=== PATIENT | female | born 1955 | race American Indian/Alaskan Native ===

== ENCOUNTER 2017-06-20 17:15 | Emergency (ER) | payer MEDICARE ==
[2017-06-20] MEDS ORDERED: NACL 0.9% 500 ML IR ONE (19:14)
[2017-06-20] MEDS ORDERED: NACL 0.9% IR ONE (19:16)
[2017-06-20] MEDS ORDERED: XYLOCAINE 1%/ EPI 1:100,000 INFILTRATI ONE (19:35)
[2017-06-20] MEDS ORDERED: XYLOCAINE 1% MPF 5 mL ONE (19:49)
[2017-06-20] MEDS ORDERED: XYLOCAINE 1% MPF 5 mL INFILTRATI ONE (20:19)
--- NOTE | 2017-06-20 20:24 | Emergency Department Report ---
- General Chief Complaint: Wound/Laceration Stated Complaint: FINGER LAC/L HAND Time Seen by Provider: 06/20/17 19:30 Source: patient Mode of arrival: Ambulatory Limitations: No Limitations - History of Present Illness Initial Comments: Patient comes into the ER today with complaints of a laceration to her left second finger. The patient states that she accidentally cut herself with a knife when trying to use the knife as a screwdriver for something else approximately 3 hours prior to my evaluation. Patient states that her last tetanus was 2 years ago. Patient applied pressure immediately and came directly to the ER. Patient denies any other complaints. -: Sudden - Related Data Home Medications Medication Instructions Recorded Confirmed Last Taken Famotidine [Pepcid] 20 mg PO BID 05/30/14 05/30/14 05/28/14 Quetiapine Fumarate [SEROquel] 25 mg PO QHS PRN 05/30/14 05/30/14 03/31/14 Simvastatin 20 mg PO QHS 05/30/14 05/30/14 05/28/14 lamoTRIgine [LaMICtal] 25 mg PO QDAY 05/30/14 05/30/14 05/28/14 Previous Rx's Medication Instructions Recorded Last Taken Type Ciprofloxacin [Ciprofloxacin ORAL 500 mg PO Q12H #10 ml 06/06/14 Unknown Rx LIQ] metroNIDAZOLE [Flagyl] 500 mg PO Q8HR #15 tablet 06/06/14 Unknown Rx oxyCODONE /ACETAMINOPHEN [Percocet 1 tab PO Q4H PRN #60 tablet 06/06/14 Unknown Rx 5/325 mg] Butalb/Acetamin/Caff 50-325-40 2 each PO Q6HR PRN #30 tablet 12/17/14 Unknown Rx [Fioricet] Ibuprofen [Motrin 600 MG tab] 600 mg PO Q8H PRN #20 tablet 12/17/14 Unknown Rx Fluconazole [Diflucan TAB] 150 mg PO ONCE #01 tablet 05/31/16 Unknown Rx Ibuprofen [Motrin] 800 mg PO Q8HR PRN #50 tablet 05/31/16 Unknown Rx Sulfamethoxazole/Trimethoprim 1 each PO BID #20 tablet 05/31/16 Unknown Rx [Bactrim DS TAB] Cephalexin [Keflex] 500 mg PO TID #30 capsule 06/20/17 Unknown Rx Allergies Allergy/AdvReac Type Severity Reaction Status Date / Time No Known Allergies Allergy Unverified 06/20/17 17:43 ED Review of Systems ROS: Stated complaint: FINGER LAC/L HAND Other details as noted in HPI Constitutional: denies: chills, fever Eyes: denies: eye pain, eye discharge, vision change ENT: denies: ear pain, throat pain Respiratory: denies: cough, shortness of breath, wheezing Cardiovascular: denies: chest pain, palpitations Endocrine: no symptoms reported Gastrointestinal: denies: abdominal pain, nausea, diarrhea Genitourinary: denies: urgency, dysuria, discharge Musculoskeletal: denies: back pain, joint swelling, arthralgia Skin: denies: rash, lesions Neurological: denies: headache, weakness, numbness, paresthesias Psychiatric: denies: anxiety, depression Hematological/Lymphatic: denies: easy bleeding, easy bruising ED Past Medical Hx - Past Medical History Previous Medical History?: Yes Hx Hypertension: Yes (well controlled with meds; high cholesterol) Hx Deep Vein Thrombosis: No Hx GERD: Yes Hx Liver Disease: No Hx Renal Disease: No Hx Psychiatric Treatment: Yes (bipolar) Hx Asthma: No Additional medical history: High cholesterol. Spinal Stenosis. Degenerative disc disease - Surgical History Past Surgical History?: Yes Hx Pacemaker: No Hx Internal Defibrillator: No Hx Cholecystectomy: Yes Additional Surgical History: ectopic. Hysterectomy - Social History Smoking Status: Current Every Day Smoker Substance Use Type: None - Medications Home Medications: Home Medications Medication Instructions Recorded Confirmed Last Taken Type Famotidine [Pepcid] 20 mg PO BID 05/30/14 05/30/14 05/28/14 History Quetiapine Fumarate [SEROquel] 25 mg PO QHS PRN 05/30/14 05/30/14 03/31/14 History Simvastatin 20 mg PO QHS 05/30/14 05/30/14 05/28/14 History lamoTRIgine [LaMICtal] 25 mg PO QDAY 05/30/14 05/30/14 05/28/14 History Ciprofloxacin [Ciprofloxacin ORAL 500 mg PO Q12H #10 ml 06/06/14 Unknown Rx LIQ] metroNIDAZOLE [Flagyl] 500 mg PO Q8HR #15 tablet 06/06/14 Unknown Rx oxyCODONE /ACETAMINOPHEN [Percocet 1 tab PO Q4H PRN #60 tablet 06/06/14 Unknown Rx 5/325 mg] Butalb/Acetamin/Caff 50-325-40 2 each PO Q6HR PRN #30 tablet 12/17/14 Unknown Rx [Fioricet] Ibuprofen [Motrin 600 MG tab] 600 mg PO Q8H PRN #20 tablet 12/17/14 Unknown Rx Fluconazole [Diflucan TAB] 150 mg PO ONCE #01 tablet 05/31/16 Unknown Rx Ibuprofen [Motrin] 800 mg PO Q8HR PRN #50 tablet 05/31/16 Unknown Rx Sulfamethoxazole/Trimethoprim 1 each PO BID #20 tablet 05/31/16 Unknown Rx [Bactrim DS TAB] Cephalexin [Keflex] 500 mg PO TID #30 capsule 06/20/17 Unknown Rx ED Physical Exam - General Limitations: No Limitations General appearance: alert, in no apparent distress - Head Head exam: Present: atraumatic, normocephalic - Eye Eye exam: Present: normal appearance - ENT ENT exam: Present: mucous membranes moist - Neck Neck exam: Present: normal inspection - Respiratory Respiratory exam: Present: normal lung sounds bilaterally. Absent: respiratory distress - Cardiovascular Cardiovascular Exam: Present: regular rate, normal rhythm. Absent: systolic murmur, diastolic murmur, rubs, gallop - GI/Abdominal GI/Abdominal exam: Present: soft, normal bowel sounds - Extremities Exam Extremities exam: Present: full ROM, tenderness (left second finger), normal capillary refill. Absent: normal inspection (subcutaneous 1.5 cm flap laceration noted to lateral aspects of the second finger over DIP joint.), pedal edema, joint swelling - Back Exam Back exam: Present: normal inspection - Neurological Exam Neurological exam: Present: alert, oriented X3 - Psychiatric Psychiatric exam: Present: normal affect, normal mood - Skin Skin exam: Present: warm, dry, intact, normal color. Absent: rash ED Course Vital Signs 06/20/17 17:37 Temperature 98.8 F Pulse Rate 88 Respiratory 16 Rate Blood Pressure 133/85 O2 Sat by Pulse 98 Oximetry - Laceration /Wound Repair Left Lateral Distal Finger Wound Location: upper extremity (left distal second finger over the DIP joint laterally.) Wound Length (cm): 1 (1.5 cm ) Wound's Depth, Shape: flap (cutaneous) Wound Explored: clean Irrigated w/ Saline (ccs): 30 Betadine Prep?: Yes Anesthesia: 1% Lidocaine Volume Anesthetic (ccs): 4 Wound Repaired With: sutures Suture Size/Type: 5:0, proline Number of Sutures: 4 Layer Closure?: No Sterile Dressing Applied?: Yes Progress: Patient tolerated procedure very well without any complications or difficulty. ED Medical Decision Making - Medical Decision Making Patient is nontoxic and hemodynamically stable. Patient tolerated procedure very well without any palpitations. I instructed patient on proper care and cleaning for her wound. Patient is to return to the ER in 10 days for suture removal. Patient is in agreement with treatment plan patient is stable for discharge. Critical care attestation.: If time is entered above; I have spent that time in minutes in the direct care of this critically ill patient, excluding procedure time. ED Disposition Clinical Impression: Finger laceration Disposition: - TO HOME OR SELFCARE Is pt being admited?: No Does the pt Need Aspirin: No Condition: Good Instructions: Finger Laceration (ED), Suture Care (ED) Prescriptions: Cephalexin [Keflex] 500 mg PO TID #30 capsule Referrals: PRIMARY CARE, [Primary Care Provider] - 3-5 Days Time of Disposition: 20:25
[2017-06-20 20:45] VITALS: BP 158/83
== END 2017-06-20 20:56 | disposition home or self-care (01) ==
LOC: ED 17:15
DX: S61.211A Laceration without foreign body of left index finger without damage to nail, initial encounter (principal); I10 Essential (primary) hypertension; K21.9 Gastro-esophageal reflux disease without esophagitis; F31.9 Bipolar disorder, unspecified; E78.00 Pure hypercholesterolemia, unspecified; F17.200 Nicotine dependence, unspecified, uncomplicated; W26.0XXA Contact with knife, initial encounter; Y93.89 Activity, other specified; Y99.9 Unspecified external cause status; Y92.89 Other specified places as the place of occurrence of the external cause

== ENCOUNTER 2017-07-01 12:11 | Emergency (ER) | payer MEDICARE ==
--- NOTE | 2017-07-01 13:09 | Emergency Department Report ---
Suture/Staple Removal - HPI Chief Complaint: Laceration/Recheck/Suture Stated Complaint: SUTURE REMOVAL Time Seen by Provider: 07/01/17 13:04 When Sutures or Violet Placed: 8-10 Days Ago Wound Location: L index finger ED Review of Systems ROS: Stated complaint: SUTURE REMOVAL Other details as noted in HPI Comment: All other systems reviewed and negative Constitutional: denies: chills, fever Musculoskeletal: denies: joint swelling Skin: as per HPI (sutures in place, no drainage ). denies: change in color ED Past Medical Hx - Past Medical History Previous Medical History?: Yes Hx Hypertension: Yes (well controlled with meds; high cholesterol) Hx Deep Vein Thrombosis: No Hx GERD: Yes Hx Liver Disease: No Hx Renal Disease: No Hx Psychiatric Treatment: Yes (bipolar) Hx Asthma: No Additional medical history: High cholesterol. Spinal Stenosis. Degenerative disc disease - Surgical History Past Surgical History?: Yes Hx Pacemaker: No Hx Internal Defibrillator: No Hx Cholecystectomy: Yes Additional Surgical History: ectopic. Hysterectomy - Social History Smoking Status: Current Every Day Smoker Substance Use Type: Prescribed - Medications Home Medications: Home Medications Medication Instructions Recorded Confirmed Last Taken Type Famotidine [Pepcid] 20 mg PO BID 05/30/14 05/30/14 05/28/14 History Quetiapine Fumarate [SEROquel] 25 mg PO QHS PRN 05/30/14 05/30/14 03/31/14 History Simvastatin 20 mg PO QHS 05/30/14 05/30/14 05/28/14 History lamoTRIgine [LaMICtal] 25 mg PO QDAY 05/30/14 05/30/14 05/28/14 History Ciprofloxacin [Ciprofloxacin ORAL 500 mg PO Q12H #10 ml 06/06/14 Unknown Rx LIQ] metroNIDAZOLE [Flagyl] 500 mg PO Q8HR #15 tablet 06/06/14 Unknown Rx oxyCODONE /ACETAMINOPHEN [Percocet 1 tab PO Q4H PRN #60 tablet 06/06/14 Unknown Rx 5/325 mg] Butalb/Acetamin/Caff 50-325-40 2 each PO Q6HR PRN #30 tablet 12/17/14 Unknown Rx [Fioricet] Ibuprofen [Motrin 600 MG tab] 600 mg PO Q8H PRN #20 tablet 12/17/14 Unknown Rx Fluconazole [Diflucan TAB] 150 mg PO ONCE #01 tablet 05/31/16 Unknown Rx Ibuprofen [Motrin] 800 mg PO Q8HR PRN #50 tablet 05/31/16 Unknown Rx Sulfamethoxazole/Trimethoprim 1 each PO BID #20 tablet 05/31/16 Unknown Rx [Bactrim DS TAB] Cephalexin [Keflex] 500 mg PO TID #30 capsule 06/20/17 Unknown Rx Fluconazole [Diflucan TAB] 150 mg PO Q72HR PRN #4 tablet 06/20/17 Unknown Rx Suture Removal Exam - Exam General: Vital signs noted. No distress. Alert and acting appropriately. Wound: No Pathologic Erythema, No Tenderness, No Drainage, No Pus, No Wound Dehiscence Other Systems: All other systems reviewed and are unremarkable. [address] of the radial aspect of the distal L index finger ED Course Vital Signs 07/01/17 12:56 Temperature 98.1 F Pulse Rate 84 Respiratory 18 Rate Blood Pressure 136/80 O2 Sat by Pulse 100 Oximetry - Reevaluation(s) Reevaluation #1: 07/01/17 13:08 pt tolerated suture removal well. - Pulse Oximetry Interpretation Digit-Finger Initial Pulse Oximetry Readin Actions Taken: none ED Recheck MDM - Differential Diagnosis Suture/Staple Removal Critical Care Time: No Critical care attestation.: If time is entered above; I have spent that time in minutes in the direct care of this critically ill patient, excluding procedure time. ED Disposition Clinical Impression: Visit for suture removal Disposition: DC-01 TO HOME OR SELFCARE Is pt being admited?: No Does the pt Need Aspirin: No Condition: Stable Instructions: Suture Removal (ED) Referrals: CURT APODACA MD [Referring] - 3-5 Days Time of Disposition: 13:09
[2017-07-01 13:51] VITALS: BP 122/73
== END 2017-07-01 13:51 | disposition home or self-care (01) ==
LOC: ED 12:11
DX: Z48.02 Encounter for removal of sutures (principal); I10 Essential (primary) hypertension; K21.9 Gastro-esophageal reflux disease without esophagitis; F31.9 Bipolar disorder, unspecified; E78.00 Pure hypercholesterolemia, unspecified; F17.200 Nicotine dependence, unspecified, uncomplicated

== ENCOUNTER 2019-04-23 17:39 | Emergency (ER) | payer MEDICARE ==
--- NOTE | 2019-04-23 18:09 | Emergency Department Report ---
Blank Doc - Documentation Documentation: pt states that a 70 lbs door fell and hit her head while at work +headache states her vision feels blurry no N/V no LOC states she has tingling in her fingers no neck pain denies being on blood thinners PMHx arthritis, bipolar, HTN, HLD +smoker Non drinker no drug use
--- NOTE | 2019-04-23 19:42 | Cat Scan Report ---
PROCEDURE: CT HEAD/BRAIN WO CON TECHNIQUE: Computerized tomography of the head was performed without contrast material. CT DOSE LENGTH PRODUCT: 920.5 mGycm HISTORY: 70lbs door fell onto head, no LOC contusion left occipital region. COMPARISONS: None . FINDINGS: There is no evidence of an acute intracranial process, intracranial hemorrhage or mass effect. The ventricles are normal size. The visualized portions of the orbits, paranasal and mastoid sinuses are notable for deformity of the medial wall of the left orbit with herniation of orbital fat into the deformity. This most likely re present sequela of previous medial orbital wall fracture. There is no abnormality in the adjacent eth moid sinus to suggest that this is acute. There is no evidence of acute fracture. IMPRESSION: 1. No evidence of an acute intracranial process, intracranial hemorrhage or mass effect. 2. No evidence of acute fracture. 3. Deformity medial wall left orbit that most likely represent sequela of previous medial orbital wal l fracture.. This document is electronically signed by Kelsea Del Rio MD., Apr 23 2019 07:40:50 PM ET
[2019-04-23] MEDS ORDERED: NACL 0.9% 1000 ML 1,000 ML ONE (19:43)
--- NOTE | 2019-04-23 21:53 | Emergency Department Report ---
ED Head Trauma HPI - General Chief complaint: Head Injury Stated complaint: DOOR FELL ON HEAD Time Seen by Provider: 04/23/19 18:06 Source: patient Mode of arrival: Ambulatory Limitations: No Limitations - History of Present Illness Initial comments: 64-year-old -[place] Citizen female presents to the emergency room stating that while she was at work today a 70 pound door fell on her head. Patient reports at that time she had dizziness dizziness has resolved she does have a headache. Patient reports a past medical history of arthritis in her hips. Reports a history of GERD and bipolar high cholesterol spinal stenosis degenerative disc disease. MD Complaint: head injury -: This evening Mechanism of Injury: work related injury Location: occipital Loss of Consciousness: no Previous Trauma to this Area: No Place: work Radiation: none Severity: moderate Quality: aching Consistency: intermittent Associated Symptoms: neck pain (neck). denies: nausea, vomiting, vertigo, weakness, tingling - Related Data Home Medications Medication Instructions Recorded Confirmed Last Taken Famotidine [Pepcid] 20 mg PO BID 05/30/14 05/30/14 05/28/14 Quetiapine Fumarate [SEROquel] 25 mg PO QHS PRN 05/30/14 05/30/14 03/31/14 Simvastatin 20 mg PO QHS 05/30/14 05/30/14 05/28/14 lamoTRIgine [LaMICtal] 25 mg PO QDAY 05/30/14 05/30/14 05/28/14 Previous Rx's Medication Instructions Recorded Last Taken Type Ciprofloxacin [Ciprofloxacin ORAL 500 mg PO Q12H #10 ml 06/06/14 Unknown Rx LIQ] metroNIDAZOLE [Flagyl] 500 mg PO Q8HR #15 tablet 06/06/14 Unknown Rx oxyCODONE /ACETAMINOPHEN [Percocet 1 tab PO Q4H PRN #60 tablet 06/06/14 Unknown Rx 5/325 mg] Butalb/Acetamin/Caff 50-325-40 2 each PO Q6HR PRN #30 tablet 12/17/14 Unknown Rx [Fioricet] Fluconazole [Diflucan TAB] 150 mg PO ONCE #01 tablet 05/31/16 Unknown Rx Ibuprofen [Motrin] 800 mg PO Q8HR PRN #50 tablet 05/31/16 Unknown Rx Sulfamethoxazole/Trimethoprim 1 each PO BID #20 tablet 05/31/16 Unknown Rx [Bactrim DS TAB] Cephalexin [Keflex] 500 mg PO TID #30 capsule 06/20/17 Unknown Rx Fluconazole [Diflucan TAB] 150 mg PO Q72HR PRN #4 tablet 06/20/17 Unknown Rx Ibuprofen [Motrin 600 MG tab] 600 mg PO Q8H PRN #20 tablet 04/23/19 Unknown Rx Allergies/Adverse reactions: Allergies Allergy/AdvReac Type Severity Reaction Status Date / Time codeine Allergy Rash Verified 04/23/19 17:40 ED Review of Systems ROS: Stated complaint: DOOR FELL ON HEAD Other details as noted in HPI Comment: All other systems reviewed and negative Neurological: headache ED Past Medical Hx - Past Medical History Hx Hypertension: Yes (well controlled with meds; high cholesterol) Hx Deep Vein Thrombosis: No Hx GERD: Yes Hx Liver Disease: No Hx Renal Disease: No Hx Psychiatric Treatment: Yes (bipolar) Hx Asthma: No Additional medical history: High cholesterol. Spinal Stenosis. Degenerative disc disease - Surgical History Hx Pacemaker: No Hx Internal Defibrillator: No Hx Cholecystectomy: Yes Additional Surgical History: ectopic. Hysterectomy - Social History Smoking Status: Never Smoker Substance Use Type: None - Medications Home Medications: Home Medications Medication Instructions Recorded Confirmed Last Taken Type Famotidine [Pepcid] 20 mg PO BID 05/30/14 05/30/14 05/28/14 History Quetiapine Fumarate [SEROquel] 25 mg PO QHS PRN 05/30/14 05/30/14 03/31/14 History Simvastatin 20 mg PO QHS 05/30/14 05/30/14 05/28/14 History lamoTRIgine [LaMICtal] 25 mg PO QDAY 05/30/14 05/30/14 05/28/14 History Ciprofloxacin [Ciprofloxacin ORAL 500 mg PO Q12H #10 ml 06/06/14 Unknown Rx LIQ] metroNIDAZOLE [Flagyl] 500 mg PO Q8HR #15 tablet 06/06/14 Unknown Rx oxyCODONE /ACETAMINOPHEN [Percocet 1 tab PO Q4H PRN #60 tablet 06/06/14 Unknown Rx 5/325 mg] Butalb/Acetamin/Caff 50-325-40 2 each PO Q6HR PRN #30 tablet 12/17/14 Unknown Rx [Fioricet] Fluconazole [Diflucan TAB] 150 mg PO ONCE #01 tablet 05/31/16 Unknown Rx Ibuprofen [Motrin] 800 mg PO Q8HR PRN #50 tablet 05/31/16 Unknown Rx Sulfamethoxazole/Trimethoprim 1 each PO BID #20 tablet 05/31/16 Unknown Rx [Bactrim DS TAB] Cephalexin [Keflex] 500 mg PO TID #30 capsule 06/20/17 Unknown Rx Fluconazole [Diflucan TAB] 150 mg PO Q72HR PRN #4 tablet 06/20/17 Unknown Rx Ibuprofen [Motrin 600 MG tab] 600 mg PO Q8H PRN #20 tablet 04/23/19 Unknown Rx ED Physical Exam - General Limitations: No Limitations General appearance: alert, in no apparent distress - Head Head exam: Present: atraumatic, normocephalic - Eye Eye exam: Present: normal appearance, PERRL, EOMI - ENT ENT exam: Present: mucous membranes moist - Neck Neck exam: Present: normal inspection, full ROM. Absent: tenderness - Extremities Exam Extremities exam: Present: normal inspection, full ROM - Back Exam Back exam: Present: normal inspection, full ROM - Neurological Exam Neurological exam: Present: alert, oriented X3 - Expanded Neurological Exam Expanded Patient oriented to: Present: person, place, time Cranial nerves: EOM's Intact: Normal, Gag Reflex: Normal, Tongue Deviation: Normal, Nystagmus: Normal, Facial Sensation: Normal, Facial Palsy with Forehead Movement: Normal, Facial Palsy without Forehead Movement: Normal Cerebellar function: Finger to Nose: Normal, Heel to Gaytan: Normal, Romberg: Normal Upper motor neuron: Elio Neglect: Normal, Pronator Drift: Normal, Babinski Sign: Normal, Sensory Extinction: Normal Sensory exam: Upper Extremity Light Touch: Normal, Upper Extremity Pin Prick: Normal, Upper Extremity Temperature: Normal, UE 2 Point Discrimination: Normal, Lower Extremity Light Touch: Normal, Lower Extremity Pin Prick: Normal, Lower Extremity Temperature: Normal, LE 2 Point Discrimination: Normal Motor strength exam: RUE: 4, LUE: 4, RLE: 4, LLE: 4 Best Eye Response (Esther): (4) open spontaneously Best Motor Response (Esther): (6) obeys commands Best Verbal Response ([place]): (5) oriented Esther Total: 15 - Psychiatric Psychiatric exam: Present: normal affect, normal mood - Skin Skin exam: Present: warm, dry, intact, normal color. Absent: rash ED Course Vital Signs 04/23/19 18:07 Temperature 98.5 F Pulse Rate 67 Respiratory 16 Rate Blood Pressure 170/68 [Left] O2 Sat by Pulse 97 Oximetry - Radiology Data Radiology results: report reviewed Patient: MERCY HASKINS MR#: [id number] 8 : 1955 Acct:[id number] Age/Sex: 64 / F ADM Date: 04/23/19 Loc: ED Attending Dr: Ordering Physician: DIRK BUI Date of Service: 04/23/19 Procedure(s): CT head/brain wo con Accession Number(s): [id number] cc: DIRK BUI PROCEDURE: CT HEAD/BRAIN WO CON TECHNIQUE: Computerized tomography of the head was performed without contrast material. CT DOSE LENGTH PRODUCT: 920.5 mGycm HISTORY: 70lbs door fell onto head, no LOC contusion left occipital region. COMPARISONS: None . FINDINGS: There is no evidence of an acute intracranial process, intracranial hemorrhage or mass effect. The ventricles are normal size. The visualized portions of the orbits, paranasal and mastoid sinuses are notable for deformity of the medial wall of the left orbit with herniation of orbital fat into the deformity. This most likely represent sequela of previous medial orbital wall fracture. There is no abnormality in the adjacent ethmoid sinus to suggest that this is acute. There is no evidence of acute fracture. IMPRESSION: 1. No evidence of an acute intracranial process, intracranial hemorrhage or mass effect. 2. No evidence of acute fracture. 3. Deformity medial wall left orbit that most likely represent sequela of previous medial orbital wall fracture.. This document is electronically signed by Kelsea Del Rio MD., Apr 23 2019 07:40:50 PM ET Transcribed By: ED Dictated By: KELSEA DEL RIO MD Electronically Authenticated By: KELSEA DEL RIO MD Signed Date/Time: 04/23/191941 DD/ 26 TD/TT: 04/23/191826 - Medical Decision Making 64-year-old -[place] Citizen female presents to the emergency room stating that while she was at work a 70 pound door fell on her head. CT is negative for any acute abnormalities. Patient was given ibuprofen for pain management. Patient discharged home with ibuprofen she chronically takes Percocet for pain for her arthritis of her hips. Patient continue that medication as prescribed by her primary care provider. Discussed the patient will light for her to follow up with her PCP in the next 3-5 days if symptoms persist or gets worse. Critical care attestation.: If time is entered above; I have spent that time in minutes in the direct care of this critically ill patient, excluding procedure time. ED Disposition Clinical Impression: Minor head injury without loss of consciousness Qualifiers: Encounter type: initial encounter Qualified Code(s): S09.90XA - Unspecified injury of head, initial encounter Disposition: TO HOME OR SELFCARE Is pt being admited?: No Does the pt Need Aspirin: No Condition: Stable Instructions: Minor Head Injury (ED) Additional Instructions: Continue with pain medication as prescribed. Follow up with her primary care provider if his symptoms persist or gets worse. Prescriptions: Ibuprofen [Motrin 600 MG tab] 600 mg PO Q8H PRN #20 tablet PRN Reason: Headache Referrals: KATRINA MCKEON MD [Primary Care Provider] - 3-5 Days Forms: Work/School Release Form(ED)
[2019-04-23 22:23] VITALS: BP 154/74
== END 2019-04-23 22:21 | disposition home or self-care (01) ==
LOC: ED 17:39
DX: S09.90XA Unspecified injury of head, initial encounter (principal); I10 Essential (primary) hypertension; K21.9 Gastro-esophageal reflux disease without esophagitis; F31.9 Bipolar disorder, unspecified; E78.00 Pure hypercholesterolemia, unspecified; Z90.710 Acquired absence of both cervix and uterus; Z90.49 Acquired absence of other specified parts of digestive tract; Z79.899 Other long term (current) drug therapy; Z88.6 Allergy status to analgesic agent; W22.03XA Walked into furniture, initial encounter; Y93.89 Activity, other specified; Y92.69 Other specified industrial and construction area as the place of occurrence of the external cause; Y99.0 Civilian activity done for income or pay
CPT/HCPCS: 70450; 99283; J7030

== ENCOUNTER 2020-10-27 09:43 | Emergency (ER) | payer MEDICARE ==
[2020-10-27 10:58] LABS: Basophils # (Auto) 0.1 K/mm3 (0.0-0.1); Basophils % (Auto) 0.7 % (0.0-1.8); Eosinophils % (Auto) 0.1 % (0.0-4.3); Lymphocytes # (Auto) 1.3 K/mm3 (1.2-5.4); Lymphocytes % (Auto) 12.9 % (13.4-35.0); Mean Corpuscular HGB Conc 36 % (30-34); Mean Corpuscular Volume 96 fl (79-97); Monocytes # (Auto) 0.7 K/mm3 (0.0-0.8); Monocytes % (Auto) 6.4 % (0.0-7.3); Platelet Count 263 K/mm3 (140-440); Red Blood Count 4.56 M/mm3 (3.65-5.03); Red Cell Distribution Width 12.6 % (13.2-15.2)
[2020-10-27 10:59] LABS: Hematocrit 43.6 % (30.3-42.9); Hemoglobin 15.7 gm/dl (10.1-14.3)
--- NOTE | 2020-10-27 11:07 | Emergency Department Report ---
ED N/V/D HPI - General Chief complaint: Nausea/Vomiting/Diarrhea Stated complaint: DIARRHEA/HBP PUI?: No Time Seen by Provider: 10/27/20 10:21 Source: patient Mode of arrival: Ambulatory Limitations: No Limitations - History of Present Illness Initial comments: CC: "I have been sick for a a few weeks." HPI: This is a 65 yo female with hx of hypertension, GERD, bipolar disorder, hyperlipidemia, spinal stenosis, degenerative disc disease who presents with diarrhea and weakness. On September 08 she developed diarrhea. She was evaluated at urgent care clinic. Medication did help. After the medication was finished, the diarrhea returned. She has poor appetite. She has the urge to defecate very soon after eating. The stool are "filmy and loose". Recently she just feels overall weak. She was evaluated by her PCP Dr. Logan Quintana on September 17. He prescribed hydrochlorothiazide for hypertension. She is currently awaiting GI referral. She stopped taking iron pills because the medicatonsmade her stools black. Last weekend she noticed chills. Patient has had colonoscopy in the past. However it has been greater than 10 years since her last colonoscopy. MD complaint: diarrhea -: Gradual, week(s) (7) Description of Diarrhea: mucous, other (Loose) Associated Abdominal Pain: No Severity: moderate Consistency: constant Improves with: none Worsens with: eating Context: other (No recent antibiotic use) Associated Symptoms: loss of appetite, malaise - Related Data Home Medications Medication Instructions Recorded Confirmed Last Taken Famotidine [Pepcid] 20 mg PO BID 05/30/14 05/30/14 05/28/14 Quetiapine Fumarate [SEROquel] 25 mg PO QHS PRN 05/30/14 05/30/14 03/31/14 Simvastatin 20 mg PO QHS 05/30/14 05/30/14 05/28/14 lamoTRIgine [LaMICtal] 25 mg PO QDAY 05/30/14 05/30/14 05/28/14 Previous Rx's Medication Instructions Recorded Last Taken Type Ciprofloxacin [Ciprofloxacin ORAL 500 mg PO Q12H #10 ml 06/06/14 Unknown Rx LIQ] metroNIDAZOLE [Flagyl] 500 mg PO Q8HR #15 tablet 06/06/14 Unknown Rx oxyCODONE /ACETAMINOPHEN [Percocet 1 tab PO Q4H PRN #60 tablet 06/06/14 Unknown Rx 5/325 mg] Butalb/Acetamin/Caff 50-325-40 2 each PO Q6HR PRN #30 tablet 12/17/14 Unknown Rx [Fioricet] Fluconazole (Nf) [Diflucan TAB] 150 mg PO ONCE #01 tablet 05/31/16 Unknown Rx Ibuprofen [Motrin] 800 mg PO Q8HR PRN #50 tablet 05/31/16 Unknown Rx Sulfamethoxazole/Trimethoprim 1 each PO BID #20 tablet 05/31/16 Unknown Rx [Bactrim DS TAB] Cephalexin [Keflex] 500 mg PO TID #30 capsule 06/20/17 Unknown Rx Fluconazole (Nf) [Diflucan TAB] 150 mg PO Q72HR PRN #4 tablet 06/20/17 Unknown Rx Ibuprofen [Motrin 600 MG tab] 600 mg PO Q8H PRN #20 tablet 04/23/19 Unknown Rx Ketorolac [Toradol] 10 mg PO Q6H PRN #15 tablet 06/01/20 Unknown Rx methOCARBAMOL [Robaxin] 750 mg PO Q8H PRN #21 tablet 06/01/20 Unknown Rx Ciprofloxacin HCl [Ciprofloxacin 500 mg PO Q12HR 3 Days #6 tab 10/27/20 Unknown Rx TAB] Diphenoxylate/Atropine [Lomotil] 2 tab PO QID 2 Days #16 tablet 10/27/20 Unknown Rx Potassium Chloride [K-Dur] 2 tab PO QDAY 14 Days #28 tablet 10/27/20 Unknown Rx Allergies Allergy/AdvReac Type Severity Reaction Status Date / Time codeine Allergy Rash Verified 10/27/20 09:48 ED Review of Systems ROS: Stated complaint: DIARRHEA/HBP Other details as noted in HPI Comment: All other systems reviewed and negative Constitutional: denies: fever, malaise Respiratory: denies: cough, shortness of breath Cardiovascular: denies: chest pain Gastrointestinal: diarrhea. denies: abdominal pain, nausea, vomiting ED Past Medical Hx - Past Medical History Previous Medical History?: Yes Hx Hypertension: Yes (well controlled with meds; high cholesterol) Hx Deep Vein Thrombosis: No Hx GERD: Yes Hx Liver Disease: No Hx Renal Disease: No Hx Psychiatric Treatment: Yes (bipolar) Hx Asthma: No Additional medical history: High cholesterol. Spinal Stenosis. Degenerative disc disease - Surgical History Hx Pacemaker: No Hx Internal Defibrillator: No Hx Cholecystectomy: Yes Additional Surgical History: ectopic. Hysterectomy - Social History Smoking Status: Current Every Day Smoker Substance Use Type: None - Medications Home Medications: Home Medications Medication Instructions Recorded Confirmed Last Taken Type Famotidine [Pepcid] 20 mg PO BID 05/30/14 05/30/14 05/28/14 History Quetiapine Fumarate [SEROquel] 25 mg PO QHS PRN 05/30/14 05/30/14 03/31/14 History Simvastatin 20 mg PO QHS 05/30/14 05/30/14 05/28/14 History lamoTRIgine [LaMICtal] 25 mg PO QDAY 05/30/14 05/30/14 05/28/14 History Ciprofloxacin [Ciprofloxacin ORAL 500 mg PO Q12H #10 ml 06/06/14 Unknown Rx LIQ] metroNIDAZOLE [Flagyl] 500 mg PO Q8HR #15 tablet 06/06/14 Unknown Rx oxyCODONE /ACETAMINOPHEN [Percocet 1 tab PO Q4H PRN #60 tablet 06/06/14 Unknown Rx 5/325 mg] Butalb/Acetamin/Caff 50-325-40 2 each PO Q6HR PRN #30 tablet 12/17/14 Unknown Rx [Fioricet] Fluconazole (Nf) [Diflucan TAB] 150 mg PO ONCE #01 tablet 05/31/16 Unknown Rx Ibuprofen [Motrin] 800 mg PO Q8HR PRN #50 tablet 05/31/16 Unknown Rx Sulfamethoxazole/Trimethoprim 1 each PO BID #20 tablet 05/31/16 Unknown Rx [Bactrim DS TAB] Cephalexin [Keflex] 500 mg PO TID #30 capsule 06/20/17 Unknown Rx Fluconazole (Nf) [Diflucan TAB] 150 mg PO Q72HR PRN #4 tablet 06/20/17 Unknown Rx Ibuprofen [Motrin 600 MG tab] 600 mg PO Q8H PRN #20 tablet 04/23/19 Unknown Rx Ketorolac [Toradol] 10 mg PO Q6H PRN #15 tablet 06/01/20 Unknown Rx methOCARBAMOL [Robaxin] 750 mg PO Q8H PRN #21 tablet 06/01/20 Unknown Rx Ciprofloxacin HCl [Ciprofloxacin 500 mg PO Q12HR 3 Days #6 tab 10/27/20 Unknown Rx TAB] Diphenoxylate/Atropine [Lomotil] 2 tab PO QID 2 Days #16 tablet 10/27/20 Unknown Rx Potassium Chloride [K-Dur] 2 tab PO QDAY 14 Days #28 tablet 10/27/20 Unknown Rx ED Physical Exam - General Limitations: No Limitations General appearance: alert, in no apparent distress, other (Appears well, appears comfortable appears well-hydrated) - Head Head exam: Present: atraumatic, normocephalic - Eye Eye exam: Present: normal appearance - ENT ENT exam: Present: mucous membranes moist - Neck Neck exam: Present: normal inspection, full ROM - Respiratory Respiratory exam: Present: normal lung sounds bilaterally. Absent: respiratory distress, wheezes, rales, rhonchi - Cardiovascular Cardiovascular Exam: Present: regular rate, normal rhythm, normal heart sounds. Absent: systolic murmur, diastolic murmur, rubs, gallop - GI/Abdominal GI/Abdominal exam: Present: soft, normal bowel sounds. Absent: distended, tenderness, guarding, rebound - Extremities Exam Extremities exam: Present: normal inspection - Neurological Exam Neurological exam: Present: alert, oriented X3 - Psychiatric Psychiatric exam: Present: normal affect, normal mood - Skin Skin exam: Present: warm, dry, intact, normal color. Absent: rash ED Course Vital Signs 10/27/20 10/27/20 09:50 11:45 Temperature 97.9 F Pulse Rate 93 H 70 Respiratory 18 Rate Blood Pressure 166/87 Blood Pressure 161/80 [Left] O2 Sat by Pulse 96 Oximetry ED Medical Decision Making - Lab Data Result diagrams: 10/27/20 10:44 10/27/20 10:44 - Medical Decision Making 1. Diarrhea for 7 weeks: Differential diagnosis includes IBS, infectious enteritis colitis, malignancy, medication effect. Due to length duration of symptoms course of ciprofloxacin is indicated. Also provided prescription for Lomotil. 2. Dehydration due to diarrhea in the setting of hydrochlorothiazide diuretic use. I have asked patient to stop the hydrochlorothiazide diuretic in order to prevent further dehydration. Patient received 2 L IV fluid therapy as well as p.o. potassium supplementation in the emergency department. She felt much better after treatment. I encouraged electrolyte supplementation with Gatorade or Powerade as well as increase hydration. I have prescribed 2 weeks of p.o. potassium supplementation. Critical care attestation.: If time is entered above; I have spent that time in minutes in the direct care of this critically ill patient, excluding procedure time. ED Disposition Clinical Impression: Diarrhea, Dehydration, Hyponatremia, Hypokalemia Disposition: - TO HOME OR SELFCARE Is pt being admited?: No Does the pt Need Aspirin: No Condition: Stable Instructions: Dehydration, Adult, [id number], Diarrhea, Adult Prescriptions: Ciprofloxacin HCl [Ciprofloxacin TAB] 500 mg PO Q12HR 3 Days #6 tab Potassium Chloride [K-Dur] 2 tab PO QDAY 14 Days #28 tablet Diphenoxylate/Atropine [Lomotil] 2 tab PO QID 2 Days #16 tablet Referrals: PRIMARY CARE, [Primary Care Provider] - 3-5 Days REYNOLD CARDENAS MD [Staff Physician] - 3-5 Days
[2020-10-27 11:17] LABS: BUN/Creatinine Ratio 16; Blood Urea Nitrogen 14 mg/dL (7-17); Calcium 9.8 mg/dL (8.4-10.2); Hemolysis Index 66
[2020-10-27] MEDS ORDERED: SODIUM CHLORIDE 0.9% 1000 ML 1,000 ML IV ONE ×2 (12:13→12:14)
[2020-10-27] MEDS ORDERED: POTASSIUM CHLORIDE ER 20 MEQ TAB PO ONE (12:14)
[2020-10-27 12:20] VITALS: BP 161/80
[2020-10-27] MEDS ORDERED: ASPIRIN 81 MG TAB CHEW PO ONE (12:30)
== END 2020-10-27 15:45 | disposition home or self-care (01) ==
LOC: ED 09:43
DX: E86.0 Dehydration (principal); E87.1 Hypo-osmolality and hyponatremia; E87.6 Hypokalemia; I10 Essential (primary) hypertension; K21.9 Gastro-esophageal reflux disease without esophagitis; F17.200 Nicotine dependence, unspecified, uncomplicated; Z90.49 Acquired absence of other specified parts of digestive tract; Z79.899 Other long term (current) drug therapy; Z88.6 Allergy status to analgesic agent
CPT/HCPCS: 36415; 80048; 85025; 96360; 96361; 99283; J7030

== ENCOUNTER 2020-11-06 19:17 | Emergency (ER) | payer MEDICARE ==
[2020-11-06 21:07] VITALS: BP 124/90
[2020-11-06] MEDS ORDERED: ASPIRIN 325 MG TAB PO ONE (21:08)
[2020-11-06 21:48] LABS: Basophils # (Auto) 0.1 K/mm3 (0.0-0.1); Basophils % (Auto) 0.7 % (0.0-1.8); Eosinophils % (Auto) 0.4 % (0.0-4.3); Hematocrit 42.6 % (30.3-42.9); Hemoglobin 14.6 gm/dl (10.1-14.3); Lymphocytes # (Auto) 3.4 K/mm3 (1.2-5.4); Lymphocytes % (Auto) 31.1 % (13.4-35.0); Mean Corpuscular HGB Conc 34 % (30-34); Mean Corpuscular Volume 98 fl (79-97); Monocytes # (Auto) 0.9 K/mm3 (0.0-0.8); Monocytes % (Auto) 7.9 % (0.0-7.3); Platelet Count 277 K/mm3 (140-440); Red Blood Count 4.37 M/mm3 (3.65-5.03); Red Cell Distribution Width 12.4 % (13.2-15.2)
--- NOTE | 2020-11-06 21:51 | XRay Report ---
CHEST 2 VIEWS INDICATION / CLINICAL INFORMATION: MAIN. COMPARISON: 06/04/2014 FINDINGS: SUPPORT DEVICES: None. HEART / MEDIASTINUM: No significant abnormality. LUNGS / PLEURA: No significant pulmonary or pleural abnormality. No pneumothorax. ADDITIONAL FINDINGS: No significant additional findings. IMPRESSION: No significant abnormality Signer Name: Aj Powell MD FACR Signed: 11/06/2020 9:47 PM Workstation Name: [id number]
[2020-11-06 22:07] LABS: BUN/Creatinine Ratio 20; Blood Urea Nitrogen 16 mg/dL (7-17); Calcium 10.2 mg/dL (8.4-10.2); Hemolysis Index 17
[2020-11-07] MEDS ORDERED: POTASSIUM CHLORIDE ER 20 MEQ TAB PO ONE (09:10)
--- NOTE | 2020-11-07 09:11 | Emergency Department Report ---
ED Chest Pain HPI - General Chief Complaint: Chest Pain Stated Complaint: CHEST PAIN/SOB PUI?: No Time Seen by Provider: 11/07/20 09:01 Source: patient Mode of arrival: Ambulatory Limitations: No Limitations - History of Present Illness Initial Comments: Ms. Parrish is a 65-year-old -[place] female who presents to the emergency room today complaining of chest pain that is worse with taking a deep breath. She denies shortness of breath with activity. She denies orthopnea. She has no lower extremity edema. Patient denies cough or fever or chills. She was seen here last a couple weeks ago with weakness and dehydration. She subsequently has been followed up with her PCP Dr. Quintana who is sending her to a GI doctor for her chronic diarrhea. She has had diarrhea since August. She has had no bloody stools. Patient endorses a 20 pound weight loss in 2 months .but her BMI is normal for her age and height. Denies ever having had an endoscopy or colonoscopy Patient has a history of hypertension and hyperlipidemia. She had a nuclear stress test in 2013 that was normal. Patient does smoke cigarettes. Patient is overweight. She has a family history of coronary disease. Patient does not know her father. And her mother of heart disease. Her chest pain is left-sided. Its not worse with activity. It is dull without radiation. Not associated with anything other than deep breathing. Nothing makes it better or worse. She has no edema. No shortness of breath. She denies cough. She denies fever or chills. Patient has no history of DVT or PE. She is not tachycardic or hypotensive. She is not tachypneic or hypoxic. Patient has no history of acute coronary syndrome. Patient is having no chest pain on exam. Patient reports that she is preop for hip replacement this month. MD Complaint: chest pain Pain Location: left chest Pain Radiation: none Severity: mild Quality: aching Consistency: intermittent Improves With: nothing Worsens With: nothing Context: recent illness - Related Data On Oral Contraceptives: No Home Medications Medication Instructions Recorded Confirmed Last Taken Famotidine [Pepcid] 20 mg PO BID 05/30/14 05/30/14 05/28/14 Quetiapine Fumarate [SEROquel] 25 mg PO QHS PRN 05/30/14 05/30/14 03/31/14 Simvastatin 20 mg PO QHS 05/30/14 05/30/14 05/28/14 lamoTRIgine [LaMICtal] 25 mg PO QDAY 05/30/14 05/30/14 05/28/14 Previous Rx's Medication Instructions Recorded Last Taken Type Potassium Chloride [K-Dur] 2 tab PO QDAY 14 Days #28 tablet 10/27/20 Unknown Rx Allergies Allergy/AdvReac Type Severity Reaction Status Date / Time codeine Allergy Rash Verified 10/27/20 09:48 Heart Score - HEART Score History: Slightly suspicious EKG: Normal Age: 45-65 Risk factors: > 3 risk factors or hx of atherosclerotic disease Troponin: < normal limit HEART Score: 3 ED Review of Systems ROS: Stated complaint: CHEST PAIN/SOB Other details as noted in HPI Comment: All other systems reviewed and negative Constitutional: denies: chills, fever Eyes: denies: eye pain, eye discharge, vision change ENT: denies: ear pain, throat pain Respiratory: denies: cough, shortness of breath, wheezing Cardiovascular: denies: chest pain, palpitations Endocrine: no symptoms reported Gastrointestinal: denies: abdominal pain, nausea, diarrhea Genitourinary: denies: urgency, dysuria, discharge Musculoskeletal: denies: back pain, joint swelling, arthralgia Skin: denies: rash, lesions Neurological: denies: headache, weakness, paresthesias Psychiatric: denies: anxiety, depression Hematological/Lymphatic: denies: easy bleeding, easy bruising ED Past Medical Hx - Past Medical History Previous Medical History?: Yes Hx Hypertension: Yes (well controlled with meds; high cholesterol) Hx CVA: No Hx Heart Attack/AMI: No Hx Congestive Heart Failure: No Hx Diabetes: No Hx Deep Vein Thrombosis: No Hx Pulmonary Embolism: No Hx GERD: Yes Hx Liver Disease: No Hx Renal Disease: No Hx of Cancer: No Hx Sickle Cell Disease: No Hx Arthritis: Yes Hx Headaches / Migraines: No Hx Seizures: No Hx Kidney Stones: No Hx Psychiatric Treatment: Yes (bipolar) Hx Asthma: No Hx COPD: No Hx Tuberculosis: No Hx Dementia: No Hx HIV: No Additional medical history: High cholesterol. Spinal Stenosis. Degenerative disc disease - Surgical History Past Surgical History?: Yes Hx Pacemaker: No Hx Internal Defibrillator: No Hx Cholecystectomy: Yes Additional Surgical History: ectopic. Hysterectomy - Family History Family history: other (mom dec acs- does not know father) - Social History Smoking Status: Current Every Day Smoker Substance Use Type: None - Medications Home Medications: Home Medications Medication Instructions Recorded Confirmed Last Taken Type Famotidine [Pepcid] 20 mg PO BID 05/30/14 05/30/14 05/28/14 History Quetiapine Fumarate [SEROquel] 25 mg PO QHS PRN 05/30/14 05/30/14 03/31/14 History Simvastatin 20 mg PO QHS 05/30/14 05/30/14 05/28/14 History lamoTRIgine [LaMICtal] 25 mg PO QDAY 05/30/14 05/30/14 05/28/14 History Potassium Chloride [K-Dur] 2 tab PO QDAY 14 Days #28 tablet 10/27/20 Unknown Rx ED Physical Exam - General Limitations: No Limitations General appearance: alert, in no apparent distress - Head Head exam: Present: atraumatic, normocephalic - Eye Eye exam: Present: normal appearance - ENT ENT exam: Present: mucous membranes moist - Neck Neck exam: Present: normal inspection - Respiratory Respiratory exam: Present: normal lung sounds bilaterally. Absent: respiratory distress - Cardiovascular Cardiovascular Exam: Present: regular rate, normal rhythm. Absent: systolic murmur, diastolic murmur, rubs, gallop - GI/Abdominal GI/Abdominal exam: Present: soft, normal bowel sounds - Extremities Exam Extremities exam: Present: normal inspection - Back Exam Back exam: Present: normal inspection - Neurological Exam Neurological exam: Present: alert, oriented X3 - Psychiatric Psychiatric exam: Present: normal affect, normal mood - Skin Skin exam: Present: warm, dry, intact, normal color. Absent: rash ED Course Vital Signs 11/06/20 21:03 Temperature 98.5 F Pulse Rate 86 Respiratory 18 Rate Blood Pressure 124/90 O2 Sat by Pulse 96 Oximetry - Reevaluation(s) Reevaluation #1: 11/07/20 10:23 Have had a long discussion with the patient regarding her discharge plan of care. She needs to follow-up with her primary but also with GI. I recommended formal cardiac clearance prior to her upcoming surgery. Patient has no pain on reexam CHRISTOPHER score - Christopher Score Age > 65: (0) No Aspirin use within the Past 7 Days: (0) No 3 or more CAD Risk Factors: (1) Yes 2 or more Angina events in past 24 hrs: (0) No Known CAD with more than 50% Stenosis: (0) No Elevated Cardiac Markers: (0) No ST Deviation Greater than 0.5mm: (0) No CHRISTOPHER Score: 1 ED Medical Decision Making - Lab Data Result diagrams: 11/06/20 21:09 11/06/20 21:09 - EKG Data -: EKG Interpreted by Ut EKG shows normal: sinus rhythm Rate: normal - EKG Data When compared to previous EKG there are: no significant change Interpretation: no acute changes - Radiology Data Radiology results: report reviewed, image reviewed nap - Medical Decision Making Lab Results 11/06/20 11/06/20 11/07/20 Range/Units 21: 21:09 00:35 WBC 11.0 (4.5-11.0) K/mm3 RBC 4.37 (3.65-5.03) M/mm3 Hgb 14.6 H (10.1-14.3) gm/dl Hct 42.6 (30.3-42.9) % MCV 98 H (79-97) fl MCH 33 H (28-32) pg MCHC 34 (30-34) % RDW 12.4 L (13.2-15.2) % Plt Count 277 (140-440) K/mm3 Lymph % (Auto) 31.1 (13.4-35.0) % [place] % (Auto) 7.9 H (0.0-7.3) % Eos % (Auto) 0.4 (0.0-4.3) % Baso % (Auto) 0.7 (0.0-1.8) % Lymph # (Auto) 3.4 (1.2-5.4) K/mm3 [place] # (Auto) 0.9 H (0.0-0.8) K/mm3 Eos # (Auto) 0.0 (0.0-0.4) K/mm3 Baso # (Auto) 0.1 (0.0-0.1) K/mm3 Seg Neutrophils % 59.9 (40.0-70.0) % Seg Neutrophils # 6.6 (1.8-7.7) K/mm3 Sodium 133 L (137-145) mmol/L Potassium 3.3 L (3.6-5.0) mmol/L Chloride 92.6 L (98-107) mmol/L Carbon Dioxide 26 (22-30) mmol/L Anion Gap 18 mmol/L BUN 16 (7-17) mg/dL Creatinine 0.8 (0.6-1.2) mg/dL Estimated GFR > 60 ml/min BUN/Creatinine Ratio 20 % Glucose 103 H (65-100) mg/dL Calcium 10.2 (8.4-10.2) mg/dL Total Bilirubin (0.1-1.2) mg/dL AST (5-40) units/L ALT (7-56) units/L Alkaline Phosphatase (35-129) units/L Troponin T < 0.010 < 0.010 (0.00-0.029) ng/mL Total Protein (6.3-8.2) g/dL Albumin (3.9-5) g/dL Albumin/Globulin Ratio % 11/07/20 11/07/20 Range/Units 04:08 Unknown WBC (4.5-11.0) K/mm3 RBC (3.65-5.03) M/mm3 Hgb (10.1-14.3) gm/dl Hct (30.3-42.9) % MCV (79-97) fl MCH (28-32) pg MCHC (30-34) % RDW (13.2-15.2) % Plt Count (140-440) K/mm3 Lymph % (Auto) (13.4-35.0) % [place] % (Auto) (0.0-7.3) % Eos % (Auto) (0.0-4.3) % Baso % (Auto) (0.0-1.8) % Lymph # (Auto) (1.2-5.4) K/mm3 [place] # (Auto) (0.0-0.8) K/mm3 Eos # (Auto) (0.0-0.4) K/mm3 Baso # (Auto) (0.0-0.1) K/mm3 Seg Neutrophils % (40.0-70.0) % Seg Neutrophils # (1.8-7.7) K/mm3 Sodium (137-145) mmol/L Potassium (3.6-5.0) mmol/L Chloride (98-107) mmol/L Carbon Dioxide (22-30) mmol/L Anion Gap mmol/L BUN (7-17) mg/dL Creatinine (0.6-1.2) mg/dL Estimated GFR ml/min BUN/Creatinine Ratio % Glucose (65-100) mg/dL Calcium (8.4-10.2) mg/dL Total Bilirubin 0.70 (0.1-1.2) mg/dL AST 16 (5-40) units/L ALT 11 (7-56) units/L Alkaline Phosphatase 91 (35-129) units/L Troponin T < 0.010 (0.00-0.029) ng/mL Total Protein 8.1 (6.3-8.2) g/dL Albumin 4.9 (3.9-5) g/dL Albumin/Globulin Ratio 1.5 % Vital Signs 11/06/20 21:03 Temperature 98.5 F Pulse Rate 86 Respiratory 18 Rate Blood Pressure 124/90 O2 Sat by Pulse 96 Oximetry Labs have been noted. Potassium and magnesium given p.o. Troponin x3 - Twelve-lead EKG unchanged with no ST-T wave changes Chest x-ray with no acute process no consolidation or infiltrate. Patient taking p.o. without difficulty. No diarrhea while in the emergency room. Patient being discharged home with detailed follow-up including primary care, GI and cardiac doctors. She has potassium that she takes at home. I discussed adding magnesium [id number] to her regimen. She will continue to take her blood pressure and hyperlipidemia medications. Explained to the patient given her GI issues she should have that cleared prior to pursuing her surgery later in the month. And given risk factors she should have cardiac clearance prior to surgery. Patient verbalizes understanding. Patient verbalizes understanding of discharge plan of care including follow-up, medications, diet and activity. - Differential Diagnosis ro acs/ro dehydration/ro electroyte disturbance Critical care attestation.: If time is entered above; I have spent that time in minutes in the direct care of this critically ill patient, excluding procedure time. ED Disposition Clinical Impression: Hypokalemia, Chronic diarrhea, Atypical chest pain, GERD (gastroesophageal reflux disease) Disposition: DC-01 TO HOME OR SELFCARE Is pt being admited?: No Does the pt Need Aspirin: No Condition: Stable Instructions: Hypokalemia, Chest Pain (ED) Additional Instructions: Continue your current medications. Continue your potassium supplementation. Do not take this on an empty stomach it can make your stomach irritated. Consider magnesium replacement as we discussed. Continue your potassium high blood pressure and high cholesterol medications. Follow-up with Dr. Quintana as scheduled. Let him know that she has been in the emergency room so he can view your labs. Follow-up with GI for your chronic diarrhea. Have given you referral below. Follow-up with a associate java developer for a more detailed cardiac evaluation given your impending surgery. I have given you referral below. [place] diet for a day and then advance diet as tolerated. Stay well-hydrated. Increase your diet and potassium rich foods such as oranges and bananas. Continue to monitor your blood pressure. Referrals: REYNOLD CARDENAS MD [Staff Physician] - 3-5 Days JULIANNA CONRAD MD [Staff Physician] - 3-5 Days PRIMARY CARE, [Primary Care Provider] - 3-5 Days LIZY GAGE MD [Staff Physician] - 3-5 Days Time of Disposition: 09:11
[2020-11-07] MEDS ORDERED: MAGNESIUM CHLORIDE ER 64 MG TAB PO SCH (09:30)
[2020-11-07 10:06] LABS: Alanine Aminotransferase 11 units/L (7-56); Albumin 4.9 g/dL (3.9-5)
[2020-11-07 10:23] LABS: Bilirubin,Direct < 0.2 mg/dL (0-0.2)
== END 2020-11-07 10:45 | disposition home or self-care (01) ==
LOC: ED 19:17
DX: K21.9 Gastro-esophageal reflux disease without esophagitis (principal); E87.6 Hypokalemia; R19.7 Diarrhea, unspecified; R07.89 Other chest pain; I10 Essential (primary) hypertension; M19.91 Primary osteoarthritis, unspecified site; F31.9 Bipolar disorder, unspecified; F17.200 Nicotine dependence, unspecified, uncomplicated; Z90.49 Acquired absence of other specified parts of digestive tract; Z90.710 Acquired absence of both cervix and uterus; Z79.899 Other long term (current) drug therapy; Z88.8 Allergy status to other drugs, medicaments and biological substances
CPT/HCPCS: 36415; 71046; 80048; 80076; 83690; 84484; 85025; 93005